=== PATIENT | female | born 1965 | race Caucasian/White ===

== ENCOUNTER → 2016-10-14 | Day surgery (SDC) | payer OTHER ==
[~2016-10-14] VITALS: Ht 154.9 cm; Wt 87.9 kg
[~2016-10-14] MED LIST: ACETAMINOPHEN 1000 MG/100 ML VIAL IV ONE; ACETAMINOPHEN/HYDROcodone 325 MG/5 MG TAB PO PRN; CHLORHEXIDINE GLUCONATE 2 % 1 PACK (2 CLOTHS) TOPICAL PRN; DO NOT ADM ANY ANTICOAGULANT DRUGS PRN; INSULIN HUMAN REGULAR 1,000 UNITS/10 ML VIAL SQ PRN; KETOROLAC TROMETHAMINE 60 MG/2 ML (IM) VIAL IM ONE; LACTATED RINGER'S 1000 ML IV PRN; METOPROLOL TARTRATE 25 MG TAB PO PRN; ONDANSETRON HCL 4 MG/2 ML VIAL IV PUSH ONE; POVIDONE IODINE 5% (ANTISEPSIS KIT) 4 APPLICATIONS EACH NARE PRN; PROPOFOL 200 MG/20 ML AMP IV ONE; SODIUM CHLORID 0.9% 500 ML IV PRN; fentaNYL CITRATE 250 MCG/5 ML AMP ONE
[2016-10-14 11:19] VITALS: BP 124/77; PULSE 70; RESP 20; TEMP 98.4; O2SAT 96
[2016-10-14 11:47] LABS: AUTOMATED NEUTROPHIL # 3.9 TH/MM3 (1.8-7.7); BASOPHIL # 0.1 TH/MM3 (0-0.2); BASOPHIL % 1.6 % (0.0-2.0); EOSINOPHIL # 0.3 TH/MM3 (0-0.4); EOSINOPHIL % 4.2 % (0.0-4.0); HEMATOCRIT 40.3 % (35.0-46.0); HEMO FLAGS DIFF FINAL; LYMPH % 25.3 % (9.0-44.0); LYMPHOCYTE # 1.7 TH/MM3 (1.0-4.8); MEAN CELL VOLUME 84.3 FL (80.0-100.0); MEAN CORPUSCULAR HEMOGLOBIN 27.3 PG (27.0-34.0); MEAN CORPUSCULAR HGB CONC 32.4 % (32.0-36.0); MONO % 10.1 % (0.0-8.0); NEUT % 58.8 % (16.0-70.0); PLATELET COUNT 208 TH/MM3 (150-450); RED BLOOD COUNT 4.78 MIL/MM3 (4.00-5.30); RED CELL DISTRIBUTION WIDTH 14.1 % (11.6-17.2); WHITE BLOOD COUNT 6.6 TH/MM3 (4.0-11.0)
[2016-10-14 11:58] LABS: BACTERIA, URINE OCC /hpf; BLOOD, URINE NEG (NEG); COMMENT (UR) CULT NOT INDICATED; CULTURE IF INDICATED CULT NOT INDICATED; GLUCOSE,URINE NEG (NEG); KETONE, URINE NEG (NEG); MUCUS URINE FEW /lpf (OCC); NITRITE,URINE NEG (NEG); PH, URINE 6.5 (5.0-8.5); SQUAMOUS EPITHELIAL CELL URINE 3 /hpf (0-5); URINE COLOR YELLOW (YELLW/STRAW)
[2016-10-14 12:02] LABS: ANION GAP 8 MEQ/L (5-15); AST (GOT) 19 U/L (15-37); BICARBONATE 24.1 MEQ/L (21.0-32.0); BLOOD UREA NITROGEN 14 MG/DL (7-18); CHLORIDE 107 MEQ/L (98-107); GLOMERULAR FILTRATION RATE 83 ML/MIN (>89); SODIUM (NA) 139 MEQ/L (136-145)
[2016-10-14 12:03] LABS: ALT (GPT) 22 U/L (10-53)
[2016-10-14 12:05] LABS: ALKALINE PHOSPHATASE 147 U/L (45-117); TOTAL BILIRUBIN ADULT 0.3 MG/DL (0.2-1.0)
[2016-10-14 14:33] VITALS: BP 139/81; PULSE 72; RESP 18; TEMP 97.8; O2SAT 100
--- NOTE | 2016-10-14 21:55 | MP ---
cc: Mery WRAY MD DATE OF SURGERY: 10/14/2016 PREOPERATIVE DIAGNOSIS: Large polyp of the endometrium. POSTOPERATIVE DIAGNOSIS: Large polyp of the endometrium. OPERATIVE PROCEDURE PERFORMED: Examination under anesthesia, dilation and curettage of the uterus, hysteroscopic exam and endometrial polypectomy. SURGEON: Mery Wray MD. ANESTHESIA: General. FINDINGS: Examination under anesthesia showed a vagina that was clean. Cervix had a 2-cm x 2-cm fleshy polyp coming out of the os. The hysteroscopic exam revealed quite a large stalk attached to the left side of the endometrium that was completely removed with the MyoSure device. The uterus was normal in size, shape and consistency and the adnexa were negative for masses. COMPLICATIONS: None. COUNTS: Correct. ESTIMATED BLOOD LOSS: Minimal. DISPOSITION: The patient tolerated the procedure well and went to the recovery room in good condition. DESCRIPTION OF THE PROCEDURE IN DETAIL: The patient was taken to the operating room and identified by name band and verbally and given a general anesthetic, prepped and draped in usual sterile fashion for vaginal surgery. An examination under anesthesia with the above findings was carried out after the time-out was taken. A weighted speculum was placed in the vagina. The anterior lip of the cervix was grasped with single-tooth tenaculum. The cervix was serially dilated after removing the entire polyp to the best of my ability and the hysteroscope was inserted. We saw a fairly large stalk attached high into the endometrium and this was totally removed with the MyoSure Device. The hysteroscope was then removed and a D&C with a sharp curettage followed. At this point, the surgery was terminated. She tolerated the procedure well and went to the recovery room in good condition. MD JUAN Umana/JESUS /2:30 PM /9:50 PM
--- NOTE | 2016-10-15 10:39 | EKG ---
Date Performed: 10/14/2016 Time Performed: 11:00:18 PTAGE: 51 years EKG: Sinus rhythm NORMAL ECG NO PREVIOUS TRACING DOCTOR: Alexei Lobo Interpretating Date/Time 10/15/2016 10:36:49
== END | disposition home or self-care (01) ==
LOC: HSDC 10:29
PROVIDERS: ATTEND Obstetrics & Gynecology
DX: N84.0 Polyp of corpus uteri (principal); N95.0 Postmenopausal bleeding; Z87.891 Personal history of nicotine dependence; Z01.810 Encounter for preprocedural cardiovascular examination
CPT/HCPCS: 00952; 58558; 80053; 81001; 85025; 88305; 93005; J0131; J1885; J2405; J3010; J7120